=== PATIENT | female | born 1940 | race African-American/Black ===

== ENCOUNTER 2025-01-22 12:55 | Emergency (ER) | payer OTHER ==
--- OUTSIDE RECORDS SUMMARY | 2025-01-22 12:58 | XMS REPORT | Continuity of Care Document ---
Author Name Unknown Address [address] [facility]. [address] [place] [address] [facility] [address] [facility]. [address] [place] [address] Care Team Providers Care Novelty Chain Maker Name Role Phone Deborah Sky Primary Care Physician [phone] PHYLLIS GREGORY Attending Clinician Unavailable MARTY BLOCK Attending Clinician Unavailable Only, Ang Db Test Attending Clinician UnavailAdrian Hay Attending Clinician [phone] ADRIAN MCKENZIE Attending Clinician Unavailable Payers Payer Name Policy Type Policy Number Effective Date Expirati on Date Source WELLCARE/[facility] [id number] 2021 00:00:00 Allergies, Adverse Reactions, Alerts Allergy Name Allergy Type Status Severity Reaction(s) Onset Date Inactive Date Treating Clinician Comments Source NO KNOWN ALLERGIE S Drug Class Active [facility] Social History Social Habit Start Date Stop Date Quantity Comments Source Exposure to SARS-CoV-2 (event) Yes [facility] Sex Assigned At 1940 00:00:00 1940 00:00:00 [facility] Smoking Status Start Date Stop Date Source Tobacco smoking consumption unknown [facility] Procedures Procedure Date / Time Performed Performing Clinicia n Source COMPREHENSIVE HEARING TEST 2023-01-02 22:14:32 Miguel Gregory [facility] Encounters Start Date/Time End Date/Time Encounter Type Admission Type Attending Clinicians Care Facility Care Department Encounter ID Source 2023-03-05 15:22:29 [facility] [id number] [facility] 2023-02-26 09:20:37 [facility] [id number] [facility] 2023-01-02 15:36:46 [facility] [id number] [facility] 2022-11-07 12:27:47 [facility] [id number] [facility] 2022-10-31 08:45:50 [facility] [id number] [facility] 2022-10-24 13:12:45 [facility] [id number] [facility] 2022-08-22 14:48:10 [facility] [id number] [facility] 2022-08-11 10:35:17 [facility] [id number] [facility] 2023-03-12 14:00:00 2023-03-12 14:00:00 Procedure Visit PHYLLIS GREGORY [facility] [address] [id number] [facility] 2023-02-19 13:30:00 2023-02-19 13:30:00 Outpatient [facility] [id number] [facility] 2023-01-02 15:30:00 2023-01-02 16:16:02 Procedure Visit Phyllis Gregory [facility] [address] [id number] [facility] 2022-11-07 13:00:00 2022-11-07 13:00:00 Outpatient [facility]Y BLOCK [facility] [id number] [facility] 2021-11-23 14:00:00 2021-11-23 14:15:00 Laboratory Only Only, Ang Db Test [facility] [id number] [id number] [facility] 2021-11-23 14:00:00 2021-11-23 14:00:00 Outpatient ADRIAN [facility] [id number] [facility] 2017-08-03 14:25:00 2017-08-03 14:25:00 Outpatient [facility] [id number] [facility]
[2025-01-22 13:32] LABS: Absolute Basophils 0.1 K/uL (0-0.5); Absolute Eosinophils 0.4 K/uL (0-0.5); Absolute Lymphocytes (CBC) 1.8 K/uL (0.7-4.9); Absolute Monocytes 0.4 K/uL (0.1-1.3); Absolute Neutrophil 2.4 K/uL (1.8-8.0); Hematocrit 38.8 % (36.0-45.0); Hemoglobin 12.9 g/dL (12.0-15.0); MCH 30.1 pg (27.0-35.0); MCHC 33.3 g/dL (32.0-36.0); MCV 90.4 fL (80-100); MPV 8.7 fL (7.6-11.3); Monocytes % 7.9 % (3.3-12.3); Neutrophils % 47.1 % (41.7-73.7); Nucleated Red Blood Cells % 0.2 % (0-0); Platelets 279 thou/uL (152-406); RBC Red Blood Cell Count 4.29 M/uL (3.86-4.86)
[2025-01-22 13:39] LABS: PT Prothrombin Time 11.7 SECONDS (10-13.0); Protime INR 1.03
[2025-01-22 13:51] LABS: ALT/SGPT 15 U/L (13-56); AST/SGOT 12 U/L (15-37); Albumin 3.5 g/dL (3.4-5.0); Albumin/Globulin Ratio 0.9 (1.1-1.8); Alkaline Phosphatase 145 U/L (45-117); Anion Gap 8.3 mEq/L (5.0-15.0); BUN Blood Urea Nitrogen 26 mg/dL (7-18); Bicarbonate 24 mEq/L (21-32); Bilirubin Total 0.3 mg/dL (0.2-1.0); Globulin 3.8 g/dL (2.3-3.5); Glomerular Filtration Rate 24 ml/min (=/>90); Glucose Level 120 mg/dL (74-106); Magnesium 2.3 mg/dL (1.6-2.4); NT PRO-BNP 971 pg/mL (<450); Potassium 4.3 mEq/L (3.5-5.1); Protein, Total 7.3 g/dL (6.4-8.2); Sodium Level 141 mEq/L (136-145); Troponin High Sensitivity 12.3 pg/mL (<58.9)
[2025-01-22 14:11] LABS: Bilirubin Direct < 0.2 mg/dL (0-0.2); Bilirubin Indirect, Calculated 0.1 mg/dL (0.2-0.8)
--- NOTE | 2025-01-22 14:24 | RAD REPORT ---
Procedure: Chest Single View HISTORY: Hypertension COMPARISON: none FINDINGS: The lungs appear clear of acute infiltrate. No significant pleural effusion noted. The heart is mildly to moderately enlarged. IMPRESSION: No acute abnormality is displayed.
[2025-01-22 16:51] LABS: Specific Gravity 1.017 (1.005-1.030); Sqamous Epithelial <5 /HPF (None Seen); Urine Bacteria <20 /HPF (<20); Urine Bilirubin NEGATIVE (Negative); Urine Blood Negative (Negative); Urine Clarity Clear (Clear); Urine Color Light-Yellow (Yellow); Urine Crystals Unidentified Few /HPF (None Seen); Urine Culture Reflex Order NOT NEEDED; Urine Glucose NEGATIVE (Negative); Urine Ketones NEGATIVE (Negative); Urine Microscopic Reflex YN ORDER UMIC; Urine Mucus Slight /HPF (None Seen); Urine Nitrite NEGATIVE (Negative); Urine Protein NEGATIVE (Negative); Urine RBC <5 /HPF (None Seen); Urine Urobilinogen Normal (Normal); Urine WBC <5 /HPF (<5); Urine WBC Clump Rare /HPF (None Seen); Urine Yeast (Budding) Trace /HPF (None Seen)
--- NOTE | 2025-01-22 16:55 | EDPHYS ---
Physician Documentation [facility] Name: Claudine Meadows Age: 84 yrs Sex: Female : 1940 Arrival Date: 01/22/2025 Time: 12:55 Bed 15 Private MD: ED Physician Karlo Pete HPI: 01/22 13:20 This 84 yrs old Black Female presents to ER via Ambulatory with complaints of High cp Blood Pressure. 13:20 The patient has elevated blood pressure and discovered this at home, visiting nurse had cp concern about elevated blood pressure today and low heart rate. 13:20 Associated signs and symptoms: The patient has no apparent associated signs or cp symptoms, Pertinent negatives: chest pain, dizziness, headache, lightheadedness, visual changes, weakness. Severity of symptoms: in the emergency department the blood pressure is are actually worse, 203 mm Hg. Historical: - Allergies: 13:12 No Known Allergies; iw - Home Meds: 13:12 atenolol 100 mg Oral tablet daily [Active]; losartan 100 mg oral tablet daily [Active]; iw aspirin 325 mg Oral tablet daily [Active]; montelukast 10 mg oral tablet daily [Active]; amlodipine 5 mg tablet daily [Active]; methimazole 10 mg Oral tablet daily [Active]; dorzolamide (PF) 2 % ophthalmic (eye) drops twice a day [Active]; - PMHx: 13:16 Hypertensive disorder; iw 13:16 Hyperthyroidism; Hypercholesterolemia; iw - PSHx: 13:16 None; iw - Immunization history:: Adult Immunizations up to date. - Infectious Disease History:: Denies. - Social history:: Smoking status: Patient denies any tobacco usage or history of. ROS: 13:25 Constitutional: Negative for body aches, chills, fever, poor PO intake, cp 13:25 Eyes: Negative for injury, pain, redness, and discharge, cp 13:25 ENT: Negative for drainage from ear(s), ear pain, sore throat, difficulty swallowing, difficulty handling secretions, 13:25 Cardiovascular: Negative for chest pain, edema, palpitations, 13:25 Respiratory: Negative for cough, shortness of breath, wheezing, 13:25 Abdomen/GI: Negative for abdominal pain, vomiting, diarrhea, constipation, 13:25 : Negative for urinary symptoms, 13:25 Neuro: Negative for altered mental status, dizziness, headache, numbness, syncope, near syncope, weakness, 13:25 All other systems are negative, Exam: 13:30 Constitutional: The patient appears in no acute distress, alert, awake, cp non-diaphoretic, non-toxic, well developed, well nourished, anxious, 13:30 Head/Face: Normocephalic, atraumatic. cp 13:30 Eyes: Periorbital structures: appear normal, Conjunctiva: normal, no exudate, no injection, Sclera: no appreciated abnormality, Lids and lashes: appear normal, bilaterally, 13:30 ENT: External ear(s): are unremarkable, Nose: is normal, Mouth: Lips: moist, Oral mucosa: moist, Posterior pharynx: Airway: no evidence of obstruction, patent, 13:30 Chest/axilla: Inspection: normal, 13:30 Cardiovascular: Rate: bradycardic, Rhythm: regular, Edema: is not appreciated, JVD: is not appreciated, 13:30 Respiratory: the patient does not display signs of respiratory distress, Respirations: normal, no use of accessory muscles, no retractions, labored breathing, is not present, Breath sounds: are clear throughout, no decreased breath sounds, no stridor, no wheezing, 13:30 Abdomen/GI: Exam negative for discomfort, distension, guarding, Inspection: abdomen appears normal, 13:30 Back: pain, is absent, ROM is normal, 13:30 Neuro: Orientation: to person, place \T\ time. Mentation: is normal, Cerebellar function: is grossly normal, Motor: moves all fours, strength is normal, Sensation: is normal, Gait: is steady, at a normal pace, without difficulty, 13:38 ECG was reviewed by the Attending Physician. cp Vital Signs: 13:11 BP 203 / 72; Pulse 58; Resp 16; Pulse Ox 100% on R/A; Weight 75.3 kg; Height 5 ft. 2 iw in. ; Pain 0/10; 13:16 BP 170 / 70; Pulse 54; Resp 16; Pulse Ox 100% on R/A; iw 13:54 BP 151 / 61; Pulse 50; Resp 18; Pulse Ox 100% on R/A; ph 14:39 BP 135 / 58; Pulse 49; Resp 18; Pulse Ox 100% ; ph 13:11 Body Mass Index 30.36 (75.30 kg, 157.48 cm) iw 13:11 Pain Scale: Adult iw MDM: 13:08 Medical Screening Exam initiated cp 16:55 Data reviewed: vital signs, nurses notes, lab test result(s), EKG, radiologic studies, cp plain films, I have discussed the patient's presentation/case with the attending Emergency Department Physician; and as a result, I will discharge patient. 16:55 Differential diagnosis: hypertensive crisis, Malignant HTN, CVA, intracerebral cp hemorrhage, acute LA. I considered the following discharge prescriptions or medication management in the emergency department Antihypertensives: At this time antihypertensives are not recommended. We recommend home blood pressure checks and following up with primary care provider, discussed taking half dose of Atenolol medication and follow-up with pcp next 2-3 days. Care significantly affected by the following chronic conditions: Hypertension. Counseling: I had a detailed discussion with the patient and/or guardian regarding the historical points, exam findings, and any diagnostic results supporting the discharge/admit diagnosis, lab results, radiology results, the need for outpatient follow up, for definitive care, a family practitioner, an electrode turner and finisher, to return to the emergency department if symptoms worsen or persist or if there are any questions or concerns that arise at home. Response to treatment: the patient's symptoms have mildly improved after treatment, and as a result, I will discharge patient. 01/22 13:15 Order name: Basic Metabolic Panel; Complete Time: 14:58 cp 01/22 15:00 Interpretation: Normal except: CL 113; GLUC 120; BUN 26; CRE 2.02; GFR 24. 01/22 13:15 Order name: CBC with Diff; Complete Time: 13:40 cp 01/22 13:40 Interpretation: Reviewed. 01/22 13:15 Order name: LFT's; Complete Time: 14:58 cp 01/22 15:00 Interpretation: Normal except: AST 12; ALK 145; IBILI, CALC 0.1; GLOB 3.8; A/G 0.9. cp 01/22 13:15 Order name: Magnesium; Complete Time: 14:58 cp 01/22 13:15 Order name: NT PRO-BNP; Complete Time: 14:58 cp 01/22 13:15 Order name: PT-INR; Complete Time: 13:40 cp 01/22 13:15 Order name: Troponin HS; Complete Time: 14:58 cp 01/22 15:00 Interpretation: Reviewed. cp 01/22 13:15 Order name: Urinalysis w/ reflexes; Complete Time: 16:53 cp 01/22 16:53 Interpretation: Reviewed. cp 01/22 13:15 Order name: XRAY Chest (1 view); Complete Time: 14:58 cp 01/22 13:15 Order name: Cardiac monitoring; Complete Time: 13:37 cp 01/22 13:15 Order name: EKG - Nurse/Tech; Complete Time: 13:37 cp 01/22 13:15 Order name: IV Saline Lock; Complete Time: 13:58 cp 01/22 13:15 Order name: Labs collected and sent; Complete Time: 13:59 cp 01/22 13:15 Order name: O2 Per Protocol; Complete Time: 13:59 cp 01/22 13:15 Order name: O2 Sat Monitoring; Complete Time: 13:59 cp EC:38 Rate is 48 beats/min. Rhythm is regular. IL interval is normal. QRS interval is normal. cp QT interval is normal. T waves are Inverted in leads III, aVR. Interpreted by me. Reviewed by me. Administered Medications: No medications were administered Disposition Summary: 01/22/25 16:55 Discharge Ordered Problem: new cp Symptoms: have improved cp Condition: Stable cp Diagnosis - Hypertensive heart disease without heart failure cp - Abnormal results of kidney function studies cp - Bradycardia, unspecified cp Followup: cp - With: Private Physician - When: 2 - 3 days - Reason: Recheck today's complaints Discharge Instructions: - Discharge Summary Sheet cp - Bradycardia, Adult cp - Hypertension, Adult cp - How to Take Your Blood Pressure, [id number] cp - Aspirin and Your Heart cp - Form - Blood Pressure Record Sheet cp - Preventing Chronic Kidney Disease cp - How to Take Your Blood Pressure cp Forms: - Medication Reconciliation Form cp - Antibiotic Education cp - Prescription Opioid Use cp - Patient Portal Instructions cp - Leadership Thank You Letter cp Signatures: Dispatcher [employer] Mariia Barrera RN RN Jhonathan Hunter PA PA cp Corrections: (The following items were deleted from the chart) 13:15 13:15 BASIC METABOLIC PANEL+C.LAB.BRZ ordered. EDMS EDMS 13:15 13:15 CBC+H.LAB.BRZ ordered. EDMS EDMS 13:15 13:15 HEPATIC FUNCTION+C.LAB.BRZ ordered. EDMS EDMS 13:15 13:15 MAGNESIUM+C.LAB.BRZ ordered. EDMS EDMS 13:15 13:15 PROBNP+C.LAB.BRZ ordered. EDMS EDMS 13:15 13:15 PROTIME (+INR)+COAG.LAB.BRZ ordered. EDMS EDMS 13:15 13:15 Troponin High Sensitivity+C.LAB.BRZ ordered. EDMS EDMS 13:15 13:15 Urinalysis+U.LAB.BRZ ordered. EDMS EDMS 13:15 13:15 Chest Single View+RAD.RAD.BRZ ordered. EDMS EDMS 13:17 13:16 PMHx: Hypothyroidism; iw iw 13:43 13:40 This 84 yrs old Black Female presents to ER via Ambulatory with complaints of cp High Blood Pressure. cp
--- NOTE | 2025-01-22 16:55 | ER ---
Nurse's Notes [facility] Name: Claudine Meadows Age: 84 yrs Sex: Female : 1940 Arrival Date: 01/22/2025 Time: 12:55 Bed 15 Private MD: Diagnosis: Hypertensive heart disease without heart failure;Abnormal results of kidney function studies;Bradycardia, unspecified Presentation: 01/22 13:09 Chief complaint: Patient states: the visiting nurse thought my BP was too high and my iw PCP told me to come to the ER, BP was 156/60 and my HR was 53, denies headache or dizziness , she took her BP medicine this am. Coronavirus screen: At this time, the client does not indicate any symptoms associated with coronavirus-19. Ebola Screen: No symptoms or risks identified at this time. Initial Sepsis Screen: Does the patient meet any 2 criteria? No. Patient's initial sepsis screen is negative. Does the patient have a suspected source of infection? No. Patient's initial sepsis screen is negative. Risk Assessment: Do you want to hurt yourself or someone else? Patient reports no desire to harm self or others. Onset of symptoms was January 22, 2025. 13:09 Method Of Arrival: Ambulatory iw 13:09 Acuity: BRAYDEN 3 iw Historical: - Allergies: 13:12 No Known Allergies; iw - Home Meds: 13:12 atenolol 100 mg Oral tablet daily [Active]; losartan 100 mg oral tablet daily [Active]; iw aspirin 325 mg Oral tablet daily [Active]; montelukast 10 mg oral tablet daily [Active]; amlodipine 5 mg tablet daily [Active]; methimazole 10 mg Oral tablet daily [Active]; dorzolamide (PF) 2 % ophthalmic (eye) drops twice a day [Active]; - PMHx: 13:16 Hypertensive disorder; iw 13:16 Hyperthyroidism; Hypercholesterolemia; iw - PSHx: 13:16 None; iw - Immunization history:: Adult Immunizations up to date. - Infectious Disease History:: Denies. - Social history:: Smoking status: Patient denies any tobacco usage or history of. Screenin:[facility] ED Fall Risk Assessment (Adult) History of falling in the last 3 months, ph including since admission No falls in past 3 months (0 pts) Confusion or Disorientation No (0 pts) Intoxicated or Sedated No (0 pts) Impaired Gait No (0 pts) Mobility Assist Device Used No (0 pt) Altered Elimination No (0 pt) Score/Fall Risk Level 0 - 2 = Low Risk Oriented to surroundings, Maintained a safe environment, Hourly rounding (assess needs \T\ fall precautionary measures) done. Abuse screen: Denies threats or abuse. Denies injuries from another. Nutritional screening: No deficits noted. Tuberculosis screening: No symptoms or risk factors identified. Assessment: 13:54 General: Appears in no apparent distress. comfortable, Behavior is calm, cooperative, ph appropriate for age. Pain: Denies pain. Neuro: Level of Consciousness is awake, alert, obeys commands, Oriented to person, place, time, situation. Cardiovascular: Capillary refill < 3 seconds in bilateral fingers Patient's skin is warm and dry. Respiratory: Airway is patent Respiratory effort is even, unlabored, Respiratory pattern is regular, symmetrical. Derm: Skin is pink, warm \T\ dry. Vital Signs: 13:11 BP 203 / 72; Pulse 58; Resp 16; Pulse Ox 100% on R/A; Weight 75.3 kg; Height 5 ft. 2 iw in. ; Pain 0/10; 13:16 BP 170 / 70; Pulse 54; Resp 16; Pulse Ox 100% on R/A; iw 13:54 BP 151 / 61; Pulse 50; Resp 18; Pulse Ox 100% on R/A; ph 14:39 BP 135 / 58; Pulse 49; Resp 18; Pulse Ox 100% ; ph 13:11 Body Mass Index 30.36 (75.30 kg, 157.48 cm) iw 13:11 Pain Scale: Adult iw ED Course: 12:59 Patient arrived in ED. mr 13:07 Jhonathan Lara PA is PHCP. cp 13:07 Karlo Pete MD is Attending Physician. cp 13:10 Triage completed. iw 13:17 Arm band placed on. iw 13:19 Sarah Rivera, KALLIE is Primary Nurse. ph 13:37 EKG done, by ED staff, reviewed by Jhonathan RICCI. ty 13:54 Patient has correct armband on for positive identification. Bed in low position. Call ph light in reach. Side rails up X 1. Pulse ox on. NIBP on. Door closed. Noise minimized. Warm blanket given. 14:02 XRAY Chest (1 view) In Process Unspecified. EDMS 17:22 No provider procedures requiring assistance completed. IV discontinued, intact, ph bleeding controlled, No redness/swelling at site. Pressure dressing applied. Administered Medications: No medications were administered Medication: 13:54 VIS not applicable for this client. ph Outcome: 16:55 Discharge ordered by . cp 17:22 Discharged to home ambulatory, ph 17:22 Condition: good 17:22 Discharge instructions given to patient, Instructed on discharge instructions, follow up and referral plans. medication usage, Demonstrated understanding of instructions, follow-up care, medications, 17:22 Patient left the ED. ph Signatures: Dispatcher [employer] EDIA IngramMarlee valencia, Star Reg mr Mariia Bliss RN RN iw Sarah Rivera RN RN ph Jhonathan Lara, RADHAMES PA cp Rg Correia Corrections: (The following items were deleted from the chart) 13:12 13:09 Chief complaint: Patient states: the visiting nurse thought my BP was too high iw and my PCP told me to come to the ER, BP was 156/60 and my HR was 53, denies headache or dizziness iw 13: 13:11 BP 203 / 72; Pulse 58bpm; Resp 16bpm; Pulse Ox 100% RA; iw iw : 13:16 PMHx: Hypothyroidism; iw iw
[2025-01-22 17:39] VITALS: O2SAT 100
[2025-01-22 17:43] VITALS: BP 135/58
--- NOTE | 2025-01-26 12:13 | EKG ---
Test Date: 2025-01-22 Test Time: 13:32:35 Bone Char Puller: KIRSTY MEASUREMENT RESULTS: Intervals: Rate: 48 CO: 180 QRSD: 82 QT: 440 QTc: 393 [place]: P: 39 CO: 180 QRS: -6 T: 11 INTERPRETIVE STATEMENTS: Marked sinus bradycardia Septal infarct, age undetermined Abnormal ECG No previous ECG available for comparison Electronically Signed On 01-26-25 12:04:48 CDT by Roberto Lockhart
== END 2025-01-22 17:22 | disposition home or self-care (01) ==
LOC: ER 12:55
DX: I11.9 Hypertensive heart disease without heart failure (principal); R00.1 Bradycardia, unspecified; R94.4 Abnormal results of kidney function studies; I10 Essential (primary) hypertension; Z79.82 Long term (current) use of aspirin
CPT/HCPCS: 36415; 71045; 80048; 80076; 81001; 83735; 83880; 84484; 85025; 85610; 93005; 99284

== ENCOUNTER 2025-02-05 20:57 | Emergency (ER) | payer OTHER ==
--- OUTSIDE RECORDS SUMMARY | 2025-02-05 20:59 | XMS REPORT | Continuity of Care Document ---
Author Name Unknown Address [address] [facility] [address] [place] [address] [facility] Address [address] [facility]. [address] [place] [address] Care Team Providers Care Rail Bender Name Role Phone TAMMY VASQUES Primary Care Physician Unavailab PHYLLIS Deluca Attending Clinician Unavailable MARTY BLOCK Attending Clinician Unavailable Only, Ang Db Test Attending Clinician UnavailAdrian Hay Attending Clinician ADRIAN MCKENZIE Attending Clinician Unavailable Payers Payer Name Policy Type Policy Number Effective Date Expirati on Date Source [facility] [id number] 2021 00:00:00 Allergies, Adverse Reactions, Alerts Allergy Name Allergy Type Status Severity Reaction(s) Onset Date Inactive Date Treating Clinician Comments Source NO KNOWN ALLERGIE S Drug Class Active [facility] Social History Social Habit Start Date Stop Date Quantity Comments Source Exposure to SARS-CoV-2 (event) Yes [facility] Sex Assigned At 1940 00:00:00 1940 00:00:00 [facility] Smoking Status Start Date Stop Date Source Tobacco smoking consumption unknown [facility] Procedures Procedure Date / Time Performed Performing Clinicia n Source COMPREHENSIVE HEARING TEST 2023-01-02 22:14:32 Migeul Gregory [facility] Encounters Start Date/Time End Date/Time Encounter Type Admission Type Attending Clinicians Care Facility Care Department Encounter ID Source 2023-03-05 15:22:29 Outpatient [facility] [id number] [facility] 2023-02-26 09:20:37 Outpatient [facility] [id number] [facility] 2023-01-02 15:36:46 Outpatient [facility] [id number] [facility] 2022-11-07 12:27:47 Outpatient [facility] [id number] [facility] 2022-10-31 08:45:50 Outpatient [facility] [id number] [facility] 2022-10-24 13:12:45 Outpatient [facility] [id number] [facility] 2022-08-22 14:48:10 Outpatient [facility] [id number] [facility] 2022-08-11 10:35:17 Outpatient [facility] [id number] [facility] 2023-03-12 14:00:00 2023-03-12 14:00:00 Procedure Visit PHYLLIS GREGORY [facility] [address] [id number] [facility] 2023-02-19 13:30:00 2023-02-19 13:30:00 Outpatient PYHLLIS GREGORY [facility] [id number] [facility] 2023-01-02 15:30:00 2023-01-02 16:16:02 Procedure Visit Phyllis Gregory [facility] [address] [id number] [facility] 2022-11-07 13:00:00 2022-11-07 13:00:00 Outpatient MARTY BLOCK [facility] [id number] [facility] 2021-11-23 14:00:00 2021-11-23 14:15:00 Laboratory Only Only, Ang Db Test [facility] [id number] General acute hospital 2021-11-23 14:00:00 2021-11-23 14:00:00 Outpatient ADRIAN FERRARO [facility] [id number] General acute hospital 2017-08-03 14:25:00 2017-08-03 14:25:00 Outpatient [facility] [id number] [facility]
[2025-02-05] MEDS ORDERED: AMLODIPINE 5 MG TAB ONE (22:07)
--- NOTE | 2025-02-05 22:19 | RAD REPORT ---
EXAM: Chest Single View HISTORY: 84 years Female htn COMPARISON: 01/22/2025 FINDINGS: LUNGS/PLEURA: The lungs are clear. No pleural effusions or pneumothorax. No pulmonary edema. CARDIAC/MEDIASTINUM: Stable size and configuration. Calcified mediastinal and hilar lymph nodes. UPPER ABDOMEN: No significant abnormality. BONES: No acute abnormality. LINES/TUBES/OTHER: N/A IMPRESSION: No evidence of acute cardiopulmonary disease.
[2025-02-05 23:09] LABS: Albumin 3.6 g/dL (3.4-5.0); Albumin/Globulin Ratio 1.1 (1.1-1.8); Anion Gap 9.1 mEq/L (5.0-15.0); Bilirubin Direct 0.2 mg/dL (0-0.2); Bilirubin Indirect, Calculated 0.1 mg/dL (0.2-0.8); Bilirubin Total 0.3 mg/dL (0.2-1.0); Globulin 3.4 g/dL (2.3-3.5); Potassium 4.1 mEq/L (3.5-5.1); Troponin High Sensitivity 24.1 pg/mL (<58.9)
[2025-02-05 23:28] LABS: Thyroid Stimulating Hormone 6.73 uIU/mL (0.358-3.740)
[2025-02-05 23:35] LABS: Absolute Eosinophils 0.3 K/uL (0-0.5); Absolute Lymphocytes (CBC) 1.6 K/uL (0.7-4.9); Absolute Monocytes 0.4 K/uL (0.1-1.3); Absolute Neutrophil 2.4 K/uL (1.8-8.0); Eosinophils % 6.2 % (0-4.4); Hematocrit 36.5 % (36.0-45.0); Lymphocytes % 34.6 % (15.3-44.8); MCH 29.7 pg (27.0-35.0); MCV 90.1 fL (80-100); MPV 9.4 fL (7.6-11.3); Monocytes % 7.9 % (3.3-12.3); Neutrophils % 50.3 % (41.7-73.7); Platelets 242 thou/uL (152-406); RBC Red Blood Cell Count 4.05 M/uL (3.86-4.86); Red Cell Distribution Width 13.3 % (12.1-15.2)
--- NOTE | 2025-02-06 00:37 | ER ---
Nurse's Notes [facility] Name: Claudine Meadows Age: 84 yrs Sex: Female : 1940 Arrival Date: 02/05/2025 Time: 20:57 Bed 16 Private MD: Diagnosis: Essential (primary) hypertension Presentation: 02/05 21:16 Chief complaint: Patient states: I have been feeling off center all day. I felt like jb4 something washed over me and my hair started pricking and my sinuses cleared up so I check my blood pressure and it was 184/83, I waited 5 minutes and it was 202/83. Coronavirus screen: At this time, the client does not indicate any symptoms associated with coronavirus-19. Ebola Screen: No symptoms or risks identified at this time. Initial Sepsis Screen: Does the patient meet any 2 criteria? No. Patient's initial sepsis screen is negative. Does the patient have a suspected source of infection? No. Patient's initial sepsis screen is negative. Risk Assessment: Do you want to hurt yourself or someone else? Patient reports no desire to harm self or others. Onset of symptoms was February 05, 2025. Transition of care: patient was not received from another setting of care. 21:16 Method Of Arrival: Ambulatory jb4 21:16 Acuity: BRAYDEN 3 jb4 Triage Assessment: 21:18 General: Appears in no apparent distress. comfortable, Behavior is calm, cooperative, jb4 appropriate for age. Pain: Denies pain. Neuro: Level of Consciousness is awake, alert, obeys commands, Oriented to person, place, time, situation. Cardiovascular: Patient's skin is warm and dry. Respiratory: Airway is patent Respiratory effort is even, unlabored, Respiratory pattern is regular, symmetrical. Derm: Skin is intact, Skin is pink, warm \T\ dry. Musculoskeletal: Circulation, motion, and sensation intact. Range of motion: intact in all extremities. Historical: - Allergies: 21:18 No Known Allergies; jb4 - PMHx: 21:18 Hypercholesterolemia; Hypertensive disorder; hyperthyroidism; jb4 - PSHx: 21:18 Hysterectomy (hyperthyroidism); benign lump removed from left shoulder jb4 (hyperthyroidism); - Immunization history:: Adult Immunizations up to date. - Infectious Disease History:: Denies. - Social history:: Smoking status: Patient denies any tobacco usage or history of. - Family history:: not pertinent. Screenin:20 [facility] ED Fall Risk Assessment (Adult) History of falling in the last 3 months, rg5 including since admission No falls in past 3 months (0 pts) Confusion or Disorientation No (0 pts) Intoxicated or Sedated No (0 pts) Impaired Gait No (0 pts) Mobility Assist Device Used No (0 pt) Altered Elimination No (0 pt) Score/Fall Risk Level 0 - 2 = Low Risk Oriented to surroundings, Maintained a safe environment, Provided non-skid footwear. Abuse screen: Denies threats or abuse. Nutritional screening: No deficits noted. Tuberculosis screening: No symptoms or risk factors identified. Assessment: 21:20 General: Appears in no apparent distress. comfortable, Behavior is calm, cooperative, rg5 appropriate for age. 21:20 Pain: Denies pain. Neuro: Level of Consciousness is awake, alert, obeys commands, rg5 Oriented to person, place, time. Cardiovascular: Denies chest pain, Patient's skin is warm and dry. Rhythm is sinus rhythm. Respiratory: Airway is patent Trachea midline. GI: Abdomen is round non-distended, Abd is soft and non tender. : No signs and/or symptoms were reported regarding the genitourinary system. EENT: No deficits noted. Derm: Skin is intact, Skin is dry, Skin is normal, Skin temperature is warm. Musculoskeletal: Circulation, motion, and sensation intact. Range of motion: intact in all extremities. 22:19 Reassessment: No changes from previously documented assessment. Patient and/or family rg5 updated on plan of care and expected duration. Pain level reassessed. Patient is alert, oriented x 3, equal unlabored respirations, skin warm/dry/pink. 23:10 Reassessment: No changes from previously documented assessment. Patient and/or family rg5 updated on plan of care and expected duration. Pain level reassessed. Patient is alert, oriented x 3, equal unlabored respirations, skin warm/dry/pink. 02/06 00:24 Reassessment: Patient and/or family updated on plan of care and expected duration. Pain rg5 level reassessed. Patient is alert, oriented x 3, equal unlabored respirations, skin warm/dry/pink. Patient states symptoms have improved. Vital Signs: 02/05 21:16 BP 176 / 88; Pulse 68; Resp 16; Temp 98.5(O); Pulse Ox 100% on R/A; Weight 74.84 kg jb4 (R); Height 5 ft. 2 in. (R); Pain 0/10; 22:00 BP 154 / 65; Pulse 60; Resp 18; Pulse Ox 100% on R/A; Pain 0/10; rg5 23:00 BP 146 / 69; Pulse 56; Resp 17; Pulse Ox 99% on R/A; Pain 0/10; rg5 02/06 00:24 BP 126 / 60; Pulse 55; Resp 18; Pulse Ox 100% on R/A; rg5 00:30 BP 141 / 62; Pulse 58; Resp 18; Pulse Ox 100% on R/A; Pain 0/10; rg5 02/05 21:16 Body Mass Index 30.18 (74.84 kg, 157.48 cm) jb4 02/05 21:16 Pain Scale: Adult jb4 22:00 Pain Scale: Adult rg5 23:00 Pain Scale: Adult rg5 00:30 Pain Scale: Adult rg5 ED Course: 02/05 21:03 Patient arrived in ED. gm2 21:03 Kike Viramontes MD is Attending Physician. rt 21:18 Triage completed. jb4 21:18 Arm band placed on right wrist. jb4 21:20 Patient has correct armband on for positive identification. Bed in low position. Call rg5 light in reach. Side rails up X 1. Door closed. Noise minimized. Warm blanket given. 21:20 No provider procedures requiring assistance completed. Inserted saline lock: 20 gauge rg5 in left antecubital area, using aseptic technique. Blood collected. Flushed with 10 mL NS. 21:38 Samuel Monte, KALLIE is Primary Nurse. rg5 22:15 XRAY Chest (1 view) In Process Unspecified. EDMS 23:08 CT Head Brain wo Cont In Process Unspecified. EDMS 04 00:54 IV discontinued, bleeding controlled. rg5 00:55 Provided Education on: post er care. rg5 Administered Medications: 02/05 22:09 Drug: amLODIPine PO 5 mg PO once Route: PO; rg5 22:21 Follow up: Response: No adverse reaction; Blood pressure is lowered rg5 22:29 CANCELLED (Patient Refused): GI Cocktail without - (maaloxsuspension 30 ml, rt lidocaine mucous membrane liquid 2 % 15 ml) PO once 22:29 CANCELLED (Patient Refused): insulin regular human10 units IVP once rt 22:29 CANCELLED (Patient Refused): ns 0.9% 1000 ml IV at 1000 ml once; to be given as a bolus rt over 60 minutes Medication: 21:20 VIS not applicable for this client. rg5 Outcome: 02/06 00:37 Discharge ordered by . rt 00:54 Discharged to home ambulatory, rg5 00:54 Condition: stable 00:54 Discharge instructions given to patient, 00:55 Patient left the ED. rg5 Signatures: Dispatcher [employer] EDMS Adarsh Sterling, RN RN jb4 Kike Viramontes MD MD rt Yvette Vernon gm2 Samuel Monte, KALLIE RN rg5 Corrections: (The following items were deleted from the chart) 00:54 00:30 BP 141 / 62; Pulse 58bpm; rg5 rg5
--- NOTE | 2025-02-06 00:37 | EDPHYS ---
Physician Documentation [facility] Name: Claudine Meadows Age: 84 yrs Sex: Female : 1940 Arrival Date: 02/05/2025 Time: 20:57 Bed 16 Private MD: ED Physician Kike Viramontes HPI: 02/05 22:12 This 84 yrs old Black Female presents to ER via Ambulatory with complaints of High rt Blood Pressure, Dizziness. 22:12 Patient presents to the ED with reported hypertension, states that she felt dizzy and rt felt a pulsing sensation in her head. States that she is no longer dizzy, checked her blood pressure, was 180, then rechecked it was about 200. The patient denies chest pain, shortness of breath, denies other acute complaints at this time, symptoms are moderate in severity, no other aggravating or alleviating factors. Historical: - Allergies: 21:18 No Known Allergies; jb4 - PMHx: 21:18 Hypercholesterolemia; Hypertensive disorder; hyperthyroidism; jb4 - PSHx: 21:18 Hysterectomy (hyperthyroidism); benign lump removed from left shoulder jb4 (hyperthyroidism); - Immunization history:: Adult Immunizations up to date. - Infectious Disease History:: Denies. - Social history:: Smoking status: Patient denies any tobacco usage or history of. - Family history:: not pertinent. ROS: 22:12 Constitutional: Negative for fever, chills, and weight loss, Cardiovascular: Negative rt for chest pain, palpitations, and edema, Respiratory: Negative for shortness of breath, cough, wheezing, and pleuritic chest pain, Abdomen/GI: Negative for abdominal pain, nausea, vomiting, diarrhea, and constipation, MS/Extremity: Negative for injury and deformity, Skin: Negative for injury, rash, and discoloration, 22:12 Neuro: Positive for dizziness, Negative for altered mental status, Exam: 22:12 Constitutional: This is a well developed, well nourished patient who is awake, alert, rt and in no acute distress. Head/Face: Normocephalic, atraumatic. Chest/axilla: Normal chest wall appearance and motion. Nontender with no deformity. No lesions are appreciated. Cardiovascular: Regular rate and rhythm with a normal S1 and S2. No gallops, murmurs, or rubs. Normal PMI, no JVD. No pulse deficits. Respiratory: Lungs have equal breath sounds bilaterally, clear to auscultation and percussion. No rales, rhonchi or wheezes noted. No increased work of breathing, no retractions or nasal flaring. Abdomen/GI: Soft, non-tender, with normal bowel sounds. No distension or tympany. No guarding or rebound. No evidence of tenderness throughout. Skin: Warm, dry with normal turgor. Normal color with no rashes, no lesions, and no evidence of cellulitis. MS/ Extremity: Pulses equal, no cyanosis. Neurovascular intact. Full, normal range of motion. Neuro: Awake and alert, GCS 15, oriented to person, place, time, and situation. Cranial nerves II-XII grossly intact. Motor strength 5/5 in all extremities. Sensory grossly intact. Cerebellar exam normal. Normal gait. 22:12 ECG was reviewed by the Attending Physician. Vital Signs: 21:16 BP 176 / 88; Pulse 68; Resp 16; Temp 98.5(O); Pulse Ox 100% on R/A; Weight 74.84 kg jb4 (R); Height 5 ft. 2 in. (R); Pain 0/10; 22:00 BP 154 / 65; Pulse 60; Resp 18; Pulse Ox 100% on R/A; Pain 0/10; rg5 23:00 BP 146 / 69; Pulse 56; Resp 17; Pulse Ox 99% on R/A; Pain 0/10; [facility] 02/06 00:24 BP 126 / 60; Pulse 55; Resp 18; Pulse Ox 100% on R/A; rg5 00:30 BP 141 / 62; Pulse 58; Resp 18; Pulse Ox 100% on R/A; Pain 0/10; 5 02/05 21:16 Body Mass Index 30.18 (74.84 kg, 157.48 cm) [facility] 02/05 21:16 Pain Scale: Adult jb4 22:00 Pain Scale: Adult rg5 23:00 Pain Scale: Adult rg5 00:30 Pain Scale: Adult rg5 MDM: 02/05 21:46 Medical Screening Exam initiated rt 02/06 00:37 Differential diagnosis: Hypertension, dizziness, ACS, intracranial hemorrhage. Data rt reviewed: vital signs, nurses notes, lab test result(s), EKG, radiologic studies. Consideration of Admission/Observation Escalation of care including admission/observation considered. No signs of endorgan dysfunction, creatinine at baseline, CT scan of the head is unremarkable, patient symptoms have resolved with amlodipine, blood pressure significantly improved. No indications for admission at this time, patient is comfortable discharge, return precautions discussed.. I considered the following discharge prescriptions or medication management in the emergency department Medications were administered in the Emergency Department. See MAR. Independent interpretation of the following test(s) in the Emergency Department CT Scan: My interpretation is No intracranial hemorrhage seen on my interpretation of CT scan images. Care significantly affected by the following chronic conditions: Hypertension. Counseling: I had a detailed discussion with the patient and/or guardian regarding the historical points, exam findings, and any diagnostic results supporting the discharge/admit diagnosis, the presence of at least one elevated blood pressure reading (>120/80) during this emergency department visit, lab results, radiology results, the need for outpatient follow up, to return to the emergency department if symptoms worsen or persist or if there are any questions or concerns that arise at home. Response to treatment: the patient's symptoms have mildly improved after treatment. 02/05 21:55 Order name: Basic Metabolic Panel; Complete Time: 23:46 rt 02/05 21:55 Order name: CBC with Diff; Complete Time: 23:46 rt 02/05 21:55 Order name: LFT's; Complete Time: 23:46 rt 02/05 21:55 Order name: Troponin HS; Complete Time: 23:46 rt 02/05 21:55 Order name: TSH; Complete Time: 23:46 rt 02/05 23:31 Order name: T4 Free; Complete Time: 23:46 EDMS 02/05 21:55 Order name: XRAY Chest (1 view); Complete Time: 22:24 rt 02/05 21:55 Order name: CT Head Brain wo Cont rt 02/05 21:55 Order name: Cardiac monitoring; Complete Time: 22:09 rt 02/05 21:55 Order name: EKG - Nurse/Tech; Complete Time: 22:09 rt 02/05 21:55 Order name: IV Saline Lock; Complete Time: 23:01 rt 02/05 21:55 Order name: Labs collected and sent; Complete Time: 23:01 rt 02/05 21:55 Order name: O2 Per Protocol; Complete Time: 22: rt 02/05 21:55 Order name: O2 Sat Monitoring; Complete Time: 22:09 rt EC/03 22:12 Rate is 62 beats/min. Rhythm is regular, Normal Sinus Rhythm with No ectopy. QRS [place] rt is Normal. VA interval is normal. QRS interval is normal. QT interval is normal. No Q waves. No ST changes noted. Interpreted by me. Administered Medications: 22:09 Drug: amLODIPine PO 5 mg PO once Route: PO; rg5 22:21 Follow up: Response: No adverse reaction; Blood pressure is lowered rg5 22:29 CANCELLED (Patient Refused): GI Cocktail without - (maaloxsuspension 30 ml, rt lidocaine mucous membrane liquid 2 % 15 ml) PO once 22:29 CANCELLED (Patient Refused): insulin regular human10 units IVP once rt 22:29 CANCELLED (Patient Refused): ns 0.9% 1000 ml IV at 1000 ml once; to be given as a bolus rt over 60 minutes Disposition Summary: 02/06/25 00:37 Discharge Ordered Notes: Location: Home rt Problem: an ongoing problem rt Symptoms: have improved rt Condition: Stable rt Diagnosis - Essential (primary) hypertension rt Followup: rt - With: Private Physician - When: 2 - 3 days - Reason: Discharge Instructions: - Discharge Summary Sheet rt - Hypertension, Adult rt Forms: - Medication Reconciliation Form rt - Antibiotic Education rt - Prescription Opioid Use rt - Patient Portal Instructions rt - Leadership Thank You Letter rt Signatures: Dispatcher [employer] EDAdarsh Junior RN RN jb4 Kike Viramontes MD MD rt Samuel Monte RN RN rg5 Corrections: (The following items were deleted from the chart) 21:56 21:56 BASIC METABOLIC PANEL+C.LAB.BRZ ordered. EDMS EDMS 21:56 21:56 CBC+H.LAB.BRZ ordered. EDMS EDMS 21:56 21:56 HEPATIC FUNCTION+C.LAB.BRZ ordered. EDMS EDMS 21:56 21:56 Troponin High Sensitivity+C.LAB.BRZ ordered. EDMS EDMS 21:56 21:56 THYROID STIMULAT HORMONE+C.LAB.BRZ ordered. EDMS EDMS 21:56 21:56 Chest Single View+RAD.RAD.BRZ ordered. EDMS EDMS 21:56 21:56 Head Brain Wo Cont+CT.RAD.BRZ ordered. EDMS EDMS : GI Cocktail without - (Maalox PO 30 ml, Lidocaine Mucous Membrane 2 % 15 rt ml) PO once ordered. rt : Insulin Regular Human IVP 10 units IVP once ordered. rt rt : NS 0.9% IV 1000 ml IV at 1000 ml once; to be given as a bolus over 60 minutes rt ordered. rt : Accucheck ordered. rt rt
[2025-02-06 01:11] VITALS: TEMP 98.5
[2025-02-06 01:16] VITALS: O2SAT 100
[2025-02-06 01:18] VITALS: BP 141/62
--- NOTE | 2025-02-06 01:29 | RAD REPORT ---
PROCEDURE: CT Head Without Intravenous Contrast CLINICAL INDICATION: The patient is 84 years old and is Female; Headache, HTN. TECHNIQUE: Axial computed tomography images of the head/brain without intravenous contrast. Sagittal and coron al reformatted images were created and reviewed. This CT exam was performed using one or more of the following dose reduction techniques: automated exposure control, adjustment of the mA and/or kV according to patient size, and/or use of iterative reconstruction technique. COMPARISON: None. FINDINGS: BRAIN: Bilateral basal ganglia calcifications, nonspecific but most commonly suggestive of poorly c ontrolled hypertension. No extra-axial fluid collection. No intracranial hemorrhage. No transtentorial herniation. No focal hunt-white matter differentiation abnormality. MIDLINE SHIFT: No midline shift. VENTRICLES: Unremarkable No ventriculomegaly. BONES/JOINTS: No fracture of the calvarium or visualized facial bones. SOFT TISSUES: Multiple tiny perifalcine lipomas incidentally demonstrated. SINUSES: No masses, bony erosion or evidence of acute sinusitis. MASTOID AIR CELLS: Unremarkable as visualized. No mastoid effusion. IMPRESSION: 1. No acute intracranial abnormality. 2. Bilateral basal ganglia calcifications, nonspecific but most commonly suggestive of poorly contr olled hypertension. 3. Multiple tiny perifalcine lipomas incidentally demonstrated. Electronically signed by: Drake Cooper MD 02/06/2025 12:18 AM CDT RP Due to temporary technical issues with the PACS/[employer] reporting system, reports are being shreyas d by the in-house radiologist without review as a courtesy to ensure prompt reporting the interpreting radiologist is fully responsible for the content of the report. Transcribed Date/Time: 02/06/2025 1:28 AM
--- NOTE | 2025-02-06 13:19 | EKG ---
Test Date: 2025-02-05 Test Time: 22:02:05 Pool Nurse: CARYN MEASUREMENT RESULTS: Intervals: Rate: 62 UT: 164 QRSD: 94 QT: 430 QTc: 436 [place]: P: 81 UT: 164 QRS: 3 T: -14 INTERPRETIVE STATEMENTS: Normal sinus rhythm with sinus arrhythmia T wave abnormality, consider anterior ischemia Abnormal ECG Compared to ECG 01/22/2025 13:32:35 T-wave abnormality now present Possible ischemia now present Sinus bradycardia no longer present Myocardial infarct finding no longer present Electronically Signed On 02-06-25 13:18:37 CDT by Roberto Lockhart
== END 2025-02-06 00:55 | disposition home or self-care (01) ==
LOC: ER 20:57
DX: I10 Essential (primary) hypertension (principal)
CPT/HCPCS: 36415; 70450; 71045; 80048; 80076; 84439; 84443; 84484; 85025; 93005; 99284

== ENCOUNTER 2025-03-05 16:14 | Inpatient (IN) | payer OTHER ==
--- OUTSIDE RECORDS SUMMARY | 2025-03-05 16:22 | XMS REPORT | Continuity of Care Document ---
Author Name Unknown Address [address] [place] [address] [facility] Address [address] [place] [address] Care Team Providers Care Watch Train Assembler Name Role Phone Deborah Sky Primary Care Physician [phone] PHYLLIS GREGORY Attending Clinician Unavailable MARTY BLOCK Attending Clinician Unavailable Only, Ang Db Test Attending Clinician UnavailAdrian Hay Attending Clinician [phone] ADRIAN MCKENZIE Attending Clinician Unavailable Payers Payer Name Policy Type Policy Number Effective Date Expirati on Date Source [facility] [id number] 2021 00:00:00 Allergies, Adverse Reactions, Alerts Allergy Name Allergy Type Status Severity Reaction(s) Onset Date Inactive Date Treating Clinician Comments Source NO KNOWN ALLERGIE S Drug Class Active [facility] Social History Social Habit Start Date Stop Date Quantity Comments Source Exposure to SARS-CoV-2 (event) Yes [facility] Sex Assigned At 1940 00:00:00 1940 00:00:00 [facility] Smoking Status Start Date Stop Date Source Tobacco smoking consumption unknown [facility] Procedures Procedure Date / Time Performed Performing Clinicia n Source COMPREHENSIVE HEARING TEST 2023-01-02 22:14:32 Miguel Gregory [facility] Encounters Start Date/Time End Date/Time Encounter Type Admission Type Attending Clinicians Care Facility Care Department Encounter ID Source 2023-03-05 15:22:29 Outpatient [facility] [id number] [facility] 2023-02-26 09:20:37 Outpatient [facility] [id number] [facility] 2023-01-02 15:36:46 Outpatient [facility] [id number] [facility] 2022-11-07 12:27:47 Outpatient [facility] [id number] [facility] 2022-10-31 08:45:50 Outpatient [facility] [id number] [facility] 2022-10-24 13:12:45 Outpatient [facility] [id number] [facility] 2022-08-22 14:48:10 Outpatient [facility] [id number] [facility] 2022-08-11 10:35:17 Outpatient [facility] [id number] [facility] 2023-03-12 14:00:00 2023-03-12 14:00:00 Procedure Visit PHYLLIS GREGORY [facility] [address] [id number] [facility] 2023-02-19 13:30:00 2023-02-19 13:30:00 Outpatient PHYLLIS GREGORY [facility] [id number] [facility] 2023-01-02 15:30:00 2023-01-02 16:16:02 Procedure Visit Phyllis Gregory [facility] [address] [id number] [facility] 2022-11-07 13:00:00 2022-11-07 13:00:00 Outpatient MARTY BLOCK [facility] [id number] [facility] 2021-11-23 14:00:00 2021-11-23 14:15:00 Laboratory Only Only, Ang Db Test [facility] [id number] [facility] 2021-11-23 14:00:00 2021-11-23 14:00:00 Outpatient ADRIAN FERRARO [facility] [id number] [facility] 2017-08-03 14:25:00 2017-08-03 14:25:00 Outpatient [facility] [id number] [facility]
--- NOTE | 2025-03-05 18:47 | RAD REPORT ---
EXAMINATION: ONE VIEW CHEST XR CLINICAL INDICATION: CHEST PAIN TECHNIQUE: Frontal chest projection is submitted. Examination is limited by patient positioning and t echnique. COMPARISON: 02/05/2025 FINDINGS: The lungs are diffusely emphysematous but grossly clear. The heart is upper limit of normal in size. No displaced fractures identified. Aortic atherosclerosis. IMPRESSION: COPD without an acute process suspected.
[2025-03-05] MEDS ORDERED: NA CHLORIDE 0.9% 500 ML ONE (18:52)
[2025-03-05] MEDS ORDERED: MAGNESIUM SULFATE 1 gm IVPB 1 GM/100 ML BAG IV ONE (18:52)
[2025-03-05 19:20] LABS: Absolute Eosinophils 0.2 K/uL (0-0.5); Absolute Lymphocytes (CBC) 1.9 K/uL (0.7-4.9); Absolute Monocytes 0.3 K/uL (0.1-1.3); Absolute Neutrophil 2.7 K/uL (1.8-8.0); Basophils % 0.8 % (0-1.3); Eosinophils % 4.6 % (0-4.4); Hematocrit 40.1 % (36.0-45.0); Hemoglobin 13.3 g/dL (12.0-15.0); Lymphocytes % 36.5 % (15.3-44.8); MCH 29.7 pg (27.0-35.0); MCHC 33.2 g/dL (32.0-36.0); MCV 89.4 fL (80-100); MPV 8.1 fL (7.6-11.3); Monocytes % 5.1 % (3.3-12.3); Nucleated Red Blood Cells % 0.1 % (0-0); Platelets 338 thou/uL (152-406); RBC Red Blood Cell Count 4.48 M/uL (3.86-4.86); Red Cell Distribution Width 13.2 % (12.1-15.2)
[2025-03-05 19:26] LABS: PT Prothrombin Time 11.7 SECONDS (10-13.0); Protime INR 1.03
[2025-03-05 19:47] LABS: ALT/SGPT 17 U/L (13-56); AST/SGOT 14 U/L (15-37); Albumin 3.9 g/dL (3.4-5.0); Alkaline Phosphatase 140 U/L (45-117); BUN Blood Urea Nitrogen 33 mg/dL (7-18); Bicarbonate 22 mEq/L (21-32); Bilirubin Direct < 0.2 mg/dL (0-0.2); Bilirubin Indirect, Calculated 0.2 mg/dL (0.2-0.8); Bilirubin Total 0.4 mg/dL (0.2-1.0); Globulin 4.1 g/dL (2.3-3.5); Glomerular Filtration Rate 25 ml/min (=/>90); Glucose Level 103 mg/dL (74-106); Lipase 34 U/L (13-75); Magnesium 2.9 mg/dL (1.6-2.4); NT PRO-BNP 1858 pg/mL (<450); Sodium Level 137 mEq/L (136-145); Troponin High Sensitivity 38.6 pg/mL (<58.9)
[2025-03-05] MEDS ORDERED: ENOXAPARIN 80 MG/0.8 ML SQ ONE (20:08)
[2025-03-05] MEDS ORDERED: METOPROLOL XL 50 MG TAB PO ONE (20:08)
--- NOTE | 2025-03-05 20:10 | EDPHYS ---
Physician Documentation [facility] Name: Claudine Meadows Age: 84 yrs Sex: Female : 1940 Arrival Date: 03/05/2025 Time: 16:14 Bed 10 Private MD: JAMAL Physician Jhonathan Maurer HPI: 03/05 19:59 This 84 yrs old Black Female presents to ER via Ambulatory with complaints of HBP, donato Heart Racing. 19:59 The patient or guardian reports chest pain that is located primarily in the substernal donato area. Onset: 2 day(s) ago. The patient presents with a history of irregular heart beat, heart racing. Context: The symptoms occur with light activity. Onset: The symptoms/episode began/occurred 2 day(s) ago. Modifying factors: The symptoms are aggravated by nothing. The symptoms are alleviated by nothing. The pain does not radiate. Associated signs and symptoms: Pertinent positives: chest pain, lightheadedness. The chest pain is described as a pressure. Severity of pain: At its worst the pain was mild in the emergency department the pain has improved moderately. Severity of symptoms: At their worst the symptoms were mild moderate in the emergency department the symptoms have improved moderately. The patient has experienced similar episodes in the past, a few times. Historical: - Allergies: 16:57 No Known Allergies; jl7 - PMHx: 16:57 Hypercholesterolemia; Hypertensive disorder; hyperthyroidism; jl7 - PSHx: 16:57 benign lump removed from left shoulder (hy); hysterectomy (hy); jl7 - Immunization history:: Adult Immunizations unknown. - Infectious Disease History:: Denies. - Social history:: Smoking status: Patient denies any tobacco usage or history of. ROS: 20:02 Constitutional: Negative for fever, chills, and weight loss, Eyes: Negative for injury, donato pain, redness, and discharge, ENT: Negative for injury, pain, and discharge, Neck: Negative for injury, pain, and swelling, Respiratory: Negative for shortness of breath, cough, wheezing, and pleuritic chest pain, Abdomen/GI: Negative for abdominal pain, nausea, vomiting, diarrhea, and constipation, Back: Negative for injury and pain, : Negative for injury, bleeding, discharge, and swelling, MS/Extremity: Negative for injury and deformity, Skin: Negative for injury, rash, and discoloration, Neuro: Negative for headache, weakness, numbness, tingling, and seizure, Psych: Negative for depression, anxiety, suicide ideation, homicidal ideation, and hallucinations, Allergy/Immunology: Negative for hives, rash, and allergies, Endocrine: Negative for neck swelling, polydipsia, polyuria, polyphagia, and marked weight changes, Hematologic/Lymphatic: Negative for swollen nodes, abnormal bleeding, and unusual bruising, 20:02 Cardiovascular: Positive for chest pain, palpitations, Exam: 20:02 Constitutional: This is a well developed, well nourished patient who is awake, alert, donato and in no acute distress. Head/Face: Normocephalic, atraumatic. Eyes: Pupils equal round and reactive to light, extra-ocular motions intact. Lids and lashes normal. Conjunctiva and sclera are non-icteric and not injected. Cornea within normal limits. Periorbital areas with no swelling, redness, or edema. ENT: Nares patent. No nasal discharge, no septal abnormalities noted. Tympanic membranes are normal and external auditory canals are clear. Oropharynx with no redness, swelling, or masses, exudates, or evidence of obstruction, uvula midline. Mucous membranes moist. Neck: Trachea midline, no thyromegaly or masses palpated, and no cervical lymphadenopathy. Supple, full range of motion without nuchal rigidity, or vertebral point tenderness. No Meningismus. Chest/axilla: Normal chest wall appearance and motion. Nontender with no deformity. No lesions are appreciated. Cardiovascular: Regular rate and rhythm with a normal S1 and S2. No gallops, murmurs, or rubs. Normal PMI, no JVD. No pulse deficits. Respiratory: Lungs have equal breath sounds bilaterally, clear to auscultation and percussion. No rales, rhonchi or wheezes noted. No increased work of breathing, no retractions or nasal flaring. Abdomen/GI: Soft, non-tender, with normal bowel sounds. No distension or tympany. No guarding or rebound. No evidence of tenderness throughout. Back: No spinal tenderness. No costovertebral tenderness. Full range of motion. Skin: Warm, dry with normal turgor. Normal color with no rashes, no lesions, and no evidence of cellulitis. MS/ Extremity: Pulses equal, no cyanosis. Neurovascular intact. Full, normal range of motion., bilateral aka Neuro: Awake and alert, GCS 15, oriented to person, place, time, and situation. Cranial nerves II-XII grossly intact. Motor strength 5/5 in all extremities. Sensory grossly intact. Cerebellar exam normal. Normal gait. Psych: Awake, alert, with orientation to person, place and time. Behavior, mood, and affect are within normal limits. 20:02 ECG was reviewed by the Attending Physician. 20:02 Musculoskeletal/extremity: ROM: no acute changes, Circulation is intact in all extremities. Sensation intact. Compartment Syndrome exam of affected extremity: is normal. Weight bearing: able to fully bear weight, DVT Exam: No signs of deep vein thrombosis. no pain, no swelling, no tenderness, negative Homans' sign noted on exam, no appreciated bluish discoloration, no erythema, no increased warmth, Vital Signs: 16:47 BP 167 / 81; Pulse 81; Resp 17; Pulse Ox 100% ; Weight 71.67 kg; Height 5 ft. 2 in. ; jl7 Pain 0/10; 19:06 BP 154 / 83; Pulse 73; Resp 18; Pulse Ox 100% ; kb3 20:14 BP 120 / 63; Pulse 69; Resp 20; Pulse Ox 98% on R/A; Pain 0/10; jp4 22:12 BP 106 / 56; Pulse 49; Resp 18; Pulse Ox 97% on R/A; Pain 0/10; jp4 23:38 BP 123 / 58; Pulse 58; Resp 18; Pulse Ox 100% ; kl 16:47 Body Mass Index 28.90 (71.67 kg, 157.48 cm) jl7 16:47 Pain Scale: Adult jl7 20:14 Pain Scale: Adult jp4 22:12 Pain Scale: Adult jp4 Baljeet Coma Score: 20:02 Eye Response: spontaneous(4). Motor Response: obeys commands(6). Verbal Response: donato oriented(5). Total: 15. MDM: 16:47 Medical Screening Exam initiated donato 20:04 Differential diagnosis: abnormal EKG, acute myocardial infarction, acute pericarditis, donato anxiety, coronary artery disease chest wall pain, cholecystitis, Cholelithiasis costochondritis, arrythmia, dehydration, esophagitis, herpes zoster, hiatal hernia, pancreatitis, peptic ulcer disease, pericarditis, pneumonia, pulmonary embolus, stable angina, thoracic aortic disection, unstable angina. HEART Score: History: Moderately Suspicious (1), ECG: Non specific repolarization disturbance / LBTB / PM (1), Age: > or = 65 years (2), Risk Factors: > or = 3 Risk factors for atherosclerotic disease (2), [Hypercholesterolemia] [Hypertension] [+ Family HX] Troponin: < or = 1 x Normal Limit (0), Total Score = 6. The patient was given aspirin in the Emergency Department. RIKKI Risk Score: 1 - patient's age is greater or equal to 65 years, 1 - Three or more CAD risk factors, 1- Known CAD, 1 - ASA use in past 7 days, 1 - Recent [<24hrs] Severe Angina, TOTAL SCORE = 5. Data reviewed: vital signs, nurses notes, lab test result(s), EKG, radiologic studies, plain films. Consideration of Admission/Observation Patient was admitted/placed on observation. Escalation of care including admission/observation considered. I considered the following discharge prescriptions or medication management in the emergency department Medications were administered in the Emergency Department. See MAR. Independent interpretation of the following test(s) in the Emergency Department EKG: See my EKG interpretation above. Test considered but Not performed: Ultrasound NO 2 D ECHO. Historians other than the Patient: PT IS WELL INFORMED. Care significantly affected by the following chronic conditions: Hypertension, HIGH CHLESTEROL. Counseling: I had a detailed discussion with the patient and/or guardian regarding the historical points, exam findings, and any diagnostic results supporting the discharge/admit diagnosis, the presence of at least one elevated blood pressure reading (>120/80) during this emergency department visit, lab results, radiology results, the need for further work-up and treatment in the hospital. 03/05 16:48 Order name: Basic Metabolic Panel; Complete Time: 21:21 [facility] 03/05 16:48 Order name: CBC with Diff; Complete Time: 19:50 [facility] 03/05 16:48 Order name: LFT's; Complete Time: 21:21 [facility] 03/05 16:48 Order name: Magnesium; Complete Time: 21:21 [facility] 03/05 16:48 Order name: NT PRO-BNP; Complete Time: 21:21 [facility] 03/05 16:48 Order name: PT-INR; Complete Time: 19:50 [facility] 03/05 16:48 Order name: Troponin HS; Complete Time: 21:21 [facility] 03/05 16:48 Order name: Lipase; Complete Time: 21:21 [facility] 03/05 16:48 Order name: TSH; Complete Time: 21:21 [facility] 03/05 19:50 Order name: T4 Free; Complete Time: 21:21 EDMS 03/05 20:22 Order name: CBC with Automated Diff EDMS 03/05 20:22 Order name: CBC with Automated Diff EDMS 03/05 20:22 Order name: Comprehensive Metabolic Panel EDMS 03/05 20:22 Order name: Comprehensive Metabolic Panel MS 03/05 16:48 Order name: XRAY Chest (1 view); Complete Time: 19:06 [facility] 03/05 16:48 Order name: Cardiac monitoring; Complete Time: 19:16 [facility] 03/05 16:48 Order name: EKG - Nurse/Tech; Complete Time: 19:38 [facility] 03/05 16:48 Order name: IV Saline Lock; Complete Time: 19:16 [facility] 03/05 16:48 Order name: Labs collected and sent; Complete Time: 19:16 [facility] 03/05 16:48 Order name: O2 Sat Monitoring; Complete Time: 19:17 [facility] EC:02 Rate is 77 beats/min. Rhythm is regular. QRS [place] is Normal. NE interval is normal. QRS donato interval is normal. QT interval is normal. No Q waves. T waves are Normal. No ST changes noted. Clinical impression: NSR w/ Non-specific ST/T Changes and No evidence of ischemia. Interpreted by me. Reviewed by me. Administered Medications: 19:16 Drug: NS 0.9% IV 500 ml 500 ml IV at 1 bolus once; to be given as a bolus over 30 jp4 minutes Volume: 500 ml; Route: IV; Rate: 1 bolus; Site: right antecubital; 21:02 Follow up: Response: No adverse reaction; Rate change bolus jp4 19:16 Drug: Magnesium Sulfate IVPB 1 grams IVPB once over 1 hrs Route: IVPB; Infused Over: 1 jp4 hrs; Site: right antecubital; 21:01 Follow up: Rate change 50 ml/hr; IV Status: Completed infusion jp4 20:16 Drug: ToPROL XL PO 25 mg PO once Route: PO; jp4 21:01 Follow up: Response: No adverse reaction jp4 20:16 Drug: Enoxaparin Sub-Q 1 mg/kg Sub-Q once Route: Sub-Q; Site: left lower abdomen; jp4 21:00 Follow up: Response: No adverse reaction; Other jp4 Disposition Summary: 03/05/25 20:09 Hospitalization Ordered Notes: Hospitalization Status: Observation donato Provider: Melecio Pruett cha Location: Telemetry/MedSurg (observation) donato Condition: Fair donato Problem: new donato Symptoms: have improved donato Bed/Room Type: Standard donato Room Assignment: 425(03/05/25 23:19) km Diagnosis - Essential (primary) hypertension donato - Palpitations donato - Unspecified kidney failure - CHRONIC donato Forms: - Medication Reconciliation Form donato - SBAR form donato - Leadership Thank You Letter donato Signatures: Dispatcher [employer] EDMS Jhonathan Maurer MD MD cha Leal, Jahala RN RN jl7 Bj Cortez RN RN jp4 Cinda Gunter [facility] Corrections: (The following items were deleted from the chart) 16:49 16:49 BASIC METABOLIC PANEL+C.LAB.BRZ ordered. EDMS EDMS 16:49 16:49 CBC+H.LAB.BRZ ordered. EDMS EDMS 16:49 16:49 HEPATIC FUNCTION+C.LAB.BRZ ordered. EDMS EDMS 16:49 16:49 MAGNESIUM+C.LAB.BRZ ordered. EDMS EDMS 16:49 16:49 PROBNP+C.LAB.BRZ ordered. EDMS EDMS 16:49 16:49 PROTIME (+INR)+COAG.LAB.BRZ ordered. EDMS EDMS 16:49 16:49 Troponin High Sensitivity+C.LAB.BRZ ordered. EDMS EDMS 16:49 16:49 LIPASE+C.LAB.BRZ ordered. EDMS EDMS 16:49 16:49 THYROID STIMULAT HORMONE+C.LAB.BRZ ordered. EDMS EDMS 16:49 16:49 Chest Single View+RAD.RAD.BRZ ordered. EDMS EDMS 23:19 20:09 donato kmf
--- NOTE | 2025-03-05 20:10 | ER ---
Nurse's Notes [facility] Name: Claudine Meadows Age: 84 yrs Sex: Female : 1940 Arrival Date: 03/05/2025 Time: 16:14 Bed 10 Private MD: Diagnosis: Essential (primary) hypertension;Palpitations;Unspecified kidney failure-CHRONIC Presentation: 03/05 16:47 Chief complaint: Patient states: Had some palpitations at 1500 today and lasted about jl7 20 minutes, resolved at this time. Coronavirus screen: At this time, the client does not indicate any symptoms associated with coronavirus-19. Ebola Screen: No symptoms or risks identified at this time. Initial Sepsis Screen: Does the patient meet any 2 criteria? No. Patient's initial sepsis screen is negative. Does the patient have a suspected source of infection? No. Patient's initial sepsis screen is negative. Risk Assessment: Do you want to hurt yourself or someone else? Patient reports no desire to harm self or others. Onset of symptoms was March 05, 2025 at 15:00. 16:47 Method Of Arrival: Ambulatory 7 16:47 Acuity: BRAYDEN 3 jl7 Triage Assessment: 16:57 General: Appears in no apparent distress. uncomfortable, Behavior is calm, cooperative, jl7 appropriate for age. Pain: Denies pain. Neuro: Level of Consciousness is awake, alert, obeys commands, Oriented to person, place, time, situation. Cardiovascular: Patient's skin is warm and dry. Respiratory: Airway is patent Respiratory effort is even, unlabored, Respiratory pattern is regular, symmetrical. Derm: Skin is pink, warm \\T\\ dry. Historical: - Allergies: 16:57 No Known Allergies; jl7 - PMHx: 16:57 Hypercholesterolemia; Hypertensive disorder; hyperthyroidism; jl7 - PSHx: 16:57 benign lump removed from left shoulder (hy); hysterectomy (hy); jl7 - Immunization history:: Adult Immunizations unknown. - Infectious Disease History:: Denies. - Social history:: Smoking status: Patient denies any tobacco usage or history of. Screenin:06 [facility] ED Fall Risk Assessment (Adult) History of falling in the last 3 months, kb3 including since admission No falls in past 3 months (0 pts) Confusion or Disorientation No (0 pts) Intoxicated or Sedated No (0 pts) Impaired Gait No (0 pts) Mobility Assist Device Used No (0 pt) Altered Elimination No (0 pt) Score/Fall Risk Level 0 - 2 = Low Risk Oriented to surroundings. Abuse screen: Denies threats or abuse. Denies injuries from another. Nutritional screening: No deficits noted. Tuberculosis screening: No symptoms or risk factors identified. Assessment: 19:06 Reassessment: Patient appears in no apparent distress at this time. General: Appears in kb3 no apparent distress. comfortable, Behavior is calm, cooperative. Pain: Denies pain. Cardiovascular: Rhythm is regular. Respiratory: No deficits noted. 19:06 Respiratory: Denies shortness of breath. kb3 19:17 General: Appears in no apparent distress. comfortable, well groomed, well developed, jp4 Behavior is calm, cooperative, very pleasant. Denies fever, feeling ill, fatigue, chills. Pain: Denies pain. Neuro: Level of Consciousness is awake, alert, obeys commands, Oriented to person, place, time, situation, Gait is steady, Speech is normal, Facial symmetry appears normal. Cardiovascular: Reports earlier in the morning patient states that she felt her BP was significantly higher than normal, at 185 SBP, and that her heart was "racing". Respiratory: No deficits noted. Airway is patent Trachea midline Respiratory effort is even, unlabored, Respiratory pattern is regular, symmetrical. Musculoskeletal: No deficits noted. Vital Signs: 16:47 BP 167 / 81; Pulse 81; Resp 17; Pulse Ox 100% ; Weight 71.67 kg; Height 5 ft. 2 in. ; jl7 Pain 0/10; 19:06 BP 154 / 83; Pulse 73; Resp 18; Pulse Ox 100% ; kb3 20:14 BP 120 / 63; Pulse 69; Resp 20; Pulse Ox 98% on R/A; Pain 0/10; jp4 22:12 BP 106 / 56; Pulse 49; Resp 18; Pulse Ox 97% on R/A; Pain 0/10; jp4 23:38 BP 123 / 58; Pulse 58; Resp 18; Pulse Ox 100% ; kl 16:47 Body Mass Index 28.90 (71.67 kg, 157.48 cm) jl7 16:47 Pain Scale: Adult jl7 20:14 Pain Scale: Adult jp4 22:12 Pain Scale: Adult jp4 Vitals: 19:17 Cardiac Rhythm Assessment Regular. jp4 Baljeet Coma Score: 20:02 Eye Response: spontaneous(4). Motor Response: obeys commands(6). Verbal Response: donato oriented(5). Total: 15. ED Course: 16:34 Patient arrived in ED. cj3 16:47 Jhonathan Maurer MD is Attending Physician. donato 16:50 EKG completed in triage. Results shown to MD. jl7 16:57 Triage completed. jl7 16:57 Arm band placed on right wrist. jl7 18:41 XRAY Chest (1 view) In Process Unspecified. EDMS 19:00 No apparent distress. Awaiting lab results. jp4 19:00 Inserted saline lock: 20 gauge in right antecubital area, using aseptic technique. jp4 19:06 Patient has correct armband on for positive identification. Placed in gown. Bed in low kb3 position. Side rails up X 1. Provided Education on: Labs, medications, POC. 19:06 No provider procedures requiring assistance completed. kb3 19:16 TSH Sent. jp4 19:16 Lipase Sent. jp4 19:17 Client placed on continuous cardiac and pulse oximetry monitoring. NIBP monitoring jp4 applied. die inspector on. Pulse ox on. NIBP on. Door closed. Noise minimized. Lights dimmed. Warm blanket given. Pillow given. 19:17 Basic Metabolic Panel Sent. jp4 19:17 LFT's Sent. jp4 19:17 CBC with Diff Sent. jp4 19:17 Magnesium Sent. jp4 19:17 NT PRO-BNP Sent. jp4 19:17 PT-INR Sent. jp4 19:17 Troponin HS Sent. jp4 20:08 Melecio Pruett MD is Hospitalizing Provider. donato 20:15 Patient states that she has no needs at this time. Very comfortable. Awaiting further jp4 results and update from physician.. 20:22 Bj Cortez, RN is Primary Nurse. jp4 22:11 pt sleeping at this time. jp4 03/06 00:31 Patient admitted, IV remains in place. kl Administered Medications: 03/05 19:16 Drug: NS 0.9% IV 500 ml 500 ml IV at 1 bolus once; to be given as a bolus over 30 jp4 minutes Volume: 500 ml; Route: IV; Rate: 1 bolus; Site: right antecubital; 21:02 Follow up: Response: No adverse reaction; Rate change bolus jp4 19:16 Drug: Magnesium Sulfate IVPB 1 grams IVPB once over 1 hrs Route: IVPB; Infused Over: 1 jp4 hrs; Site: right antecubital; 21:01 Follow up: Rate change 50 ml/hr; IV Status: Completed infusion jp4 20:16 Drug: ToPROL XL PO 25 mg PO once Route: PO; jp4 21:01 Follow up: Response: No adverse reaction jp4 20:16 Drug: Enoxaparin Sub-Q 1 mg/kg Sub-Q once Route: Sub-Q; Site: left lower abdomen; jp4 21:00 Follow up: Response: No adverse reaction; Other jp4 Medication: 19:06 VIS not applicable for this client. kb3 Outcome: 20:09 Decision to Hospitalize by Provider. donato 03/06 00:30 Admitted to Tele accompanied by nurse, room 425, Condition: stable Instructed on the need for admit, 00:31 Patient left the ED. Signatures: Dispatcher [employer] Aliyah Redmond, RN Jhonathan Toribio MD MD cha Leal, Jahala RN RN jl7 Pili Voss, KALLIE RN kb3 Bj Cortez, KALLIE RN jp4 Evelyn Ariza 3
[2025-03-05] MEDS ORDERED: ONDANSETRON 4 MG/2 ML VIAL IV PRN (20:18)
[2025-03-05] MEDS ORDERED: ACETAMINOPHEN 325 MG TABLET PO PRN (20:18)
--- NOTE | 2025-03-05 20:18 | P.HP ---
Certification for Inpatient Patient admitted to: Inpatient With expected LOS: >2 Midnights Practitioner: I am a practitioner with admitting privileges, knowledge of patient current condition, hospital course, and medical plan of care. Services: Services provided to patient in accordance with Admission requirements found in Title 42 Section 412.3 of the Code of Federal Regulations Patient History Date of Service: 03/06/25 Reason for admission: CP History of Present Illness: 84 yrs old Female with past medical history of hypertension, hyperlipidemia, hypothyroidism, who was brought to ER with palpitation and chest discomfort. Patient started having chest discomfort substernal area with no radiation started 2 days ago associated with palpitation has a feeling of racing of the heart. Denies any fever or chills. No nausea vomiting or diarrhea. Has some lightheadedness. Patient was assessed in the ER was admitted for further management of chest pain rule out ACS and consult rule out any arrhythmias Allergies No Known Allergies Allergy (Unverified 03/06/25 01:03) Home medications list reviewed: Yes Home Medications: Montelukast [Singulair] 10 mg PO BEDTIME 03/06/25 - Past Medical/Surgical History Past Medical History: Reviewed- Non-Contributory Past Surgical History: Reviewed- Non-Contributory - Social History Smoking Status: Never smoker Review of Systems 10-point ROS is otherwise unremarkable Physical Examination - Vital Signs Temperature: 97.8 F Blood Pressure: 167/81 Pulse: 82 Respirations: 18 Pulse Ox (%): 94 - Physical Exam General: Alert, In no apparent distress, Oriented x3 HEENT: Atraumatic, Normocephalic Neck: Supple, JVD not distended Respiratory: Clear to auscultation bilaterally, Normal air movement Cardiovascular: Regular rate/rhythm, Normal S1 S2 Capillary refill: <2 Seconds Gastrointestinal: Normal bowel sounds, Soft and benign, W/out hepatosplenomegaly Musculoskeletal: No clubbing, No swelling Integumentary: No rashes, No breakdown Neurological: Normal speech, Normal strength at 5/5 x4 extr Lymphatics: No axilla or inguinal lymphadenopathy - Studies Laboratory Data (last 24 hrs) 03/05/25 03/05/25 03/05/25 19:05 19:05 19:05 WBC 5.10 Hgb 13.3 Hct 40.1 Plt Count 338 PT 11.7 INR 1.03 Sodium 137 Potassium 4.0 BUN 33 H Creatinine 1.94 H Glucose 103 Magnesium 2.9 H Total Bilirubin 0.4 AST 14 L ALT 17 Alkaline Phosphatase 140 H Lipase 34 Assessment and Plan - Plan Chest pain to rule out ACS Cardiac enzymes trended Started on aspirin and statin Will get cardiology evaluation Will get an echocardiogram Hypertension Antihypertensives titrated Continue home medications and titrate as needed Hyperlipidemia Continue statin CKD stage II Monitor renal parameters Electrolytes monitor and replace accordingly Hypothyroidism Will get a TSH level and T4 Adjust thyroid medications as per the level GI/DVT prophylaxis Advanced directive full code Discharge Plan: Home Plan to discharge in: 48 Hours - Advance Directives Does patient have a Living Will: No Does patient have a Durable POA for Healthcare: No - Code Status/Comfort Care Code Status: Full Code Time Spent Managing Pts Care (In Minutes): 48
[2025-03-06] MEDS ORDERED: MORPHINE 2 MG/ML SYR IV PRN (00:03)
[2025-03-06] MEDS ORDERED: HYDROCODONE/APAP 5/325 MG TAB PO PRN (00:03)
[2025-03-06 04:17] VITALS: BMI 28.9
[2025-03-06 05:26] LABS: Absolute Eosinophils 0.3 K/uL (0-0.5); Absolute Monocytes 0.5 K/uL (0.1-1.3); Absolute Neutrophil 2.4 K/uL (1.8-8.0); Basophils % 0.8 % (0-1.3); Eosinophils % 5.1 % (0-4.4); Hematocrit 32.9 % (36.0-45.0); Hemoglobin 10.9 g/dL (12.0-15.0); Lymphocytes % 38.8 % (15.3-44.8); MCH 30.1 pg (27.0-35.0); MCV 91.1 fL (80-100); MPV 8.6 fL (7.6-11.3); Monocytes % 9.2 % (3.3-12.3); Neutrophils % 46.1 % (41.7-73.7); Nucleated Red Blood Cells % 0.2 % (0-0); Platelets 255 thou/uL (152-406); RBC Red Blood Cell Count 3.62 M/uL (3.86-4.86); Red Cell Distribution Width 13.1 % (12.1-15.2)
[2025-03-06 05:54] LABS: AST/SGOT 13 U/L (15-37); Albumin/Globulin Ratio 0.9 (1.1-1.8); Alkaline Phosphatase 107 U/L (45-117); Anion Gap 8.2 mEq/L (5.0-15.0); BUN Blood Urea Nitrogen 30 mg/dL (7-18); Bicarbonate 24 mEq/L (21-32); Bilirubin Total 0.4 mg/dL (0.2-1.0); Globulin 3.2 g/dL (2.3-3.5); Glomerular Filtration Rate 29 ml/min (=/>90); Glucose Level 82 mg/dL (74-106); Potassium 4.2 mEq/L (3.5-5.1); Protein, Total 6.2 g/dL (6.4-8.2); Sodium Level 138 mEq/L (136-145); Troponin High Sensitivity 24.9 pg/mL (<58.9)
[2025-03-06 06:02] LABS: ALT/SGPT < 14 U/L (13-56)
[2025-03-06] MEDS: ENOXAPARIN 30 MG/0.3 ML SQ SCH (09:16)
[2025-03-06] MEDS: ASPIRIN EC 81 MG TAB PO SCH (09:16)
[2025-03-06 11:44] VITALS: O2SAT 100
--- NOTE | 2025-03-06 12:42 | ECHO ---
HEIGHT: 5 ft 2 in WEIGHT: 158 lb 0 oz DATE OF STUDY: 03/06/[address]: Familia Pruett DO 2-DIMENSIONAL: YES M.MODE: YES DOPPLER: YES COLOR FLOW: YES TDS: PORTABLE: YES DEFINITY: BUBBLE STUDY: DIAGNOSIS: CHEST PAIN CARDIAC HISTORY: CATHERIZATION: NO SURGERY: NO PROSTHETIC VALVE: NO PACEMAKER: NO MEASUREMENTS (cm) DIASTOLIC (NORMALS) SYSTOLIC (NORMALS) IVSd 1.0 (0.6-1.2) LA Diam 2.8 (1.9-4.0) LVEF 60-65% LVIDd 3.6 (3.5-5.7) LVIDs 2.2 (2.0-3.5) %FS 37% LVPWd 1.1 (0.6-1.2) Ao Diam 2.5 (2.0-3.7) 2 DIMENSIONAL ASSESSMENT: RIGHT ATRIUM: NORMAL LEFT ATRIUM: MODERATELY DILATED RIGHT VENTRICLE: NORMAL LEFT VENTRICLE: NORMAL TRICUSPID VALVE: MILD TRICUSPID REGURGITATION MITRAL VALVE: NORMAL PULMONIC VALVE: NORMAL AORTIC VALVE: NORMAL PERICARDIAL EFFUSION: NONE AORTIC ROOT: NORMAL LEFT VENTRICULAR WALL MOTION: NORMAL DOPPLER/COLOR FLOW: GRADE II DIASTOLIC DYSFUNCTION COMMENTS: 1. NORMAL LEFT VENTRICULAR SYSTOLIC FUNCTION, EJECTION FRACTION 60-65%, NORMAL WALL MOTION 2. GRADE II DIASTOLIC DYSFUNCTION 3. MILD ELEVATED FILLING PRESSURE (RIGHT ATRIAL PRESSURE 5-10 mmHg) TECHNOLOGIST: SHAYLA ARAMBULA
--- NOTE | 2025-03-06 15:41 | P.CNS ---
Date of Consult: 03/06/25 Chief Complaint: CP History of Present Illness: Patient with PMH of HTN, thyroid disease, presented with palpitations, she felt her HR was going fast yesterday, denies chest pain, no SOB, no SMITH, no syncope. Allergies No Known Allergies Allergy (Unverified 03/06/25 01:03) Home medications list reviewed: Yes Home Medications: Amlodipine Besylate 10 mg PO DAILY 03/06/25 Carvedilol [Coreg] 3.125 mg PO DAILY 03/06/25 Dorzolamide HCl/Timolol Maleat [Dorzolamide-Timolol Eye Drops] 1 drop OPTH BID 03/06/25 Latanoprost Ophth [Xalatan 0.005%*] 1 drop OPTH BEDTIME 03/06/25 Losartan Potassium 100 mg PO DAILY 03/06/25 Montelukast [Singulair] 10 mg PO BEDTIME 03/06/25 Triamterene/Hydrochlorothiazid [Triamterene-Hctz 37.5-25 mg Tb] 1 each PO DAILY 03/06/25 - Past Medical/Surgical History Diabetic: No -: Hypertensive disorder -: hyperthyroidism -: hypercholesterolemia -: hysterectomy -: left shoulder benign lump removal - Family History Mother Medical History: Heart disease, Hypertension - Social History Alcohol use: No CD- Drugs: No Caffeine use: Yes Place of Residence: Home Review of Systems 10-point ROS is otherwise unremarkable Physical Examination Temp Pulse Resp BP Pulse Ox 97.7 F 50 15 123/60 100 03/06/25 12:00 03/06/25 12:00 03/06/25 12:00 03/06/25 12:00 03/06/25 12:00 General: Alert, In no apparent distress HEENT: Atraumatic, PERRLA, Mucous membr. moist/pink, EOMI, Sclerae nonicteric Neck: Supple, 2+ carotid pulse no bruit, No LAD, Without JVD or thyroid abnormality Respiratory: Clear to auscultation bilaterally, Normal air movement Cardiovascular: Regular rate/rhythm, Normal S1 S2 Gastrointestinal: Normal bowel sounds, No tenderness Musculoskeletal: No tenderness Integumentary: No rashes Neurological: Normal gait, Normal speech, Normal tone, Normal affect Lymphatics: No axilla or inguinal lymphadenopathy Laboratory Data (last 24 hrs) 0503/05/25 03/05/25 19:05 19:05 19:05 WBC 5.10 Hgb 13.3 Hct 40.1 Plt Count 338 PT 11.7 INR 1.03 Sodium 137 Potassium 4.0 BUN 33 H Creatinine 1.94 H Glucose 103 Magnesium 2.9 H Total Bilirubin 0.4 AST 14 L ALT 17 Alkaline Phosphatase 140 H Lipase 34 - Problems (1) Palpitations Current Visit: Yes Status: Acute Plan: most likely secondary to thyroid issues. tele shows sinus bradycardia outpatient follow up with cardiology for event monitor Echo is normal (2) HTN (hypertension) Current Visit: Yes Status: Acute Plan: BP is normal continue triameterne/ HCTZ (3) Hypothyroid Current Visit: Yes Status: Acute Plan: patient TSH is very high, recommend primary team to adjust thyroid medications No further inpatient cardiac work up needed, can follow up with cardiology as outpatient
--- NOTE | 2025-03-06 16:26 | EKG ---
Test Date: 2025-03-05 Test Time: 16:55:41 Staff Physical Therapist: STEPHANIE MEASUREMENT RESULTS: Intervals: Rate: 77 [place]: 166 QRSD: 82 QT: 358 QTc: 405 [place]: P: 94 [place]: 166 QRS: -13 T: 73 INTERPRETIVE STATEMENTS: Normal sinus rhythm Nonspecific T wave abnormality Abnormal ECG Compared to ECG 02/05/2025 22:02:05 Sinus arrhythmia no longer present Possible ischemia no longer present T-wave abnormality still present Electronically Signed On 03-06-25 16:26:04 CDT by Roberto Lockhart
[2025-03-06 16:53] VITALS: BP 120/61; TEMP 97.9
--- NOTE | 2025-03-06 17:50 | P.DS ---
Admission Date: 03/05/25 Discharge Date: 03/06/25 Disposition: ROUTINE DISCHARGE Discharge Condition: FAIR Reason for Admission: CP Brief History of Present Illness: 84 yrs old Female with past medical history of hypertension, hyperlipidemia, hypothyroidism, who was brought to ER for palpitation and chest discomfort associated with lightheadedness Patient was assessed in the ER initial troponin negative, chest x-ray did not show any acute disease, TSH elevated to 22, FT4 down to 0.49. Patient was admitted for further management. Hospital Course: Diagnosis Chest pain to rule out ACS Sinus bradycardia Hypothyroid state History of hypothyroidism Essential hypertension Chronic kidney disease stage III Patient noted to have bradycardia with heart rate down to 49. Given that TSH was elevated to 22 and free T4 low at 0.49, patient diagnosed with symptomatic hypothyroid state. Patient is on methimazole 10 mg daily at home which she has been told to stop taking until she follows up with an events specialist for further management of her hypothyroid state. Patient voiced understanding and plans to follow-up with her PCP Dr. Pedro chavez for a referral to an events specialist. She will need a repeat TSH within 8 weeks. Patient was evaluated by cardiology Dr. Lockhart, who recommended to stop her carvedilol because of her bradycardia. Dr. Lockhart recommended follow-up with the cardiology office for outpatient event monitor placement. Echocardiogram was done during the hospital stay which showed normal EF and grossly unremarkable. Patient blood pressure was initially high but stabilized the rest of the hospital stay. Patient confirmed she takes multiple blood pressure medications including amlodipine, losartan, triamterene and hydrochlorothiazide and states her blood pressure has been under good control with these medications including the Coreg. Patient Coreg has been discontinued. She is informed to continue monitoring her blood pressure and may need additional blood pressure medication if her blood pressure readings becomes elevated without the Coreg. She is informed to follow-up with her PCP Dr. De Dios for further blood pressure management. Patient is informed to follow-up with Dr. Lockhart for arrangement for event monitor She is also informed to follow-up with her PCP Dr. Garrett in case she will need referral before she sees a director counseling bureau. Patient voiced understanding of these instructions. Vital Signs/Physical Exam: Temp Pulse Resp BP Pulse Ox 97.9 F 52 15 120/61 100 03/06/25 16:00 03/06/25 16:00 03/06/25 16:00 03/06/25 16:00 03/06/25 16:00 General: Alert, In no apparent distress, Oriented x3 HEENT: Mucous membr. moist/pink, Sclerae nonicteric Neck: Supple, JVD not distended Respiratory: Clear to auscultation bilaterally, Normal air movement Cardiovascular: No edema, Normal S1 S2, Other (Bradycardia) Gastrointestinal: Soft and benign, Non-distended, No tenderness Musculoskeletal: No swelling, No tenderness Integumentary: No rashes, No cyanosis Neurological: Normal strength at 5/5 x4 extr, Cranial nerves 3-12 intact Laboratory Data at Discharge: WBC 5.10 thou/uL (4.3-10.9) 03/06/25 05:02 Hgb 10.9 g/dL (12.0-15.0) L D 03/06/25 05:02 Hct 32.9 % (36.0-45.0) L 03/06/25 05:02 Plt Count 255 thou/uL (152-406) 03/06/25 05:02 PT 11.7 SECONDS (10-13.0) 03/05/25 19:05 INR 1.03 03/05/25 19:05 Sodium 138 mEq/L (136-145) 03/06/25 05:02 Potassium 4.2 mEq/L (3.5-5.1) 03/06/25 05:02 BUN 30 mg/dL (7-18) H 03/06/25 05:02 Creatinine 1.73 mg/dL (0.55-1.02) H 03/06/25 05:02 Glucose 82 mg/dL (74-106) 03/06/25 05:02 Magnesium 2.9 mg/dL (1.6-2.4) H 03/05/25 19:05 Total Bilirubin 0.4 mg/dL (0.2-1.0) 03/06/25 05:02 AST 13 U/L (15-37) L 03/06/25 05:02 ALT < 14 U/L (13-56) 03/06/25 05:02 Alkaline Phosphatase 107 U/L (45-117) D 03/06/25 05:02 Lipase 34 U/L (13-75) 03/05/25 19:05 Home Medications: Amlodipine Besylate 10 mg PO DAILY 03/06/25 Dorzolamide HCl/Timolol Maleat [Dorzolamide-Timolol Eye Drops] 1 drop OPTH BID 03/06/25 Latanoprost Ophth [Xalatan 0.005%*] 1 drop OPTH BEDTIME 03/06/25 Losartan Potassium 100 mg PO DAILY 03/06/25 Montelukast [Singulair*] 10 mg PO BEDTIME 03/06/25 Triamterene/Hydrochlorothiazid [Triamterene-Hctz 37.5-25 mg Tb] 1 each PO DAILY 03/06/25 Physician Discharge Instructions: Patient presented to the ER with palpitation and chest discomfort. Symptoms are associated with lightheadedness Patient was assessed in the ER, initial cardiac enzyme(troponin was negative), chest x-ray suggested some evidence of COPD, no acute disease. Blood work showed elevated TSH indicating a hypothyroid state. Patient was admitted for further investigations and management. Patient noted to have bradycardia with heart rate down to 49. Given that TSH was elevated to 22 and free T4 low at 0.49, patient diagnosed with symptomatic hypothyroid state. Patient is on methimazole 10 mg daily at home which she has been told to stop taking until she follows up with an events specialist for further management of her hypothyroid state. Patient voiced understanding and plans to follow-up with her PCP Dr. Pedro chavez for a referral to an events specialist. She will need a repeat TSH within 8 weeks. Patient was evaluated by cardiology Dr. Lockhart, who recommended to stop her carvedilol because of her bradycardia. Dr. Lockhart recommended follow-up with the cardiology office for outpatient event monitor placement. Echocardiogram was done during the hospital stay which showed normal EF and grossly unremarkable. Patient blood pressure was initially high but stabilized the rest of the hospital stay. Patient confirmed she takes multiple blood pressure medications including amlodipine, losartan, triamterene and hydrochlorothiazide and states her blood pressure has been under good control with these medications including the Coreg. Patient Coreg has been discontinued. She is informed to continue monitoring her blood pressure and may need additional blood pressure medication if her blood pressure readings becomes elevated without the Coreg. She is informed to follow-up with her PCP Dr. De Dios for further blood pressure management. She is also informed to follow-up with her PCP Dr. Harmon in case she will need referral before she sees a director counseling bureau. No new medications. Medication changes: Carvedilol discontinued Methimazole discontinued. Diet: AHA Activity: Fall precautions Followup: Seb De Dios MD [Primary Care Provider] - 1 Week (Call for appointment.) Roberto Lockhart MD [ACTIVE - CAN ADMIT] - 2-3 Days (Please call the office for arrangement for event monitor) Time spent managing pt's care (in minutes): 36
[2025-03-06] MEDS ORDERED: ATORVASTATIN 40 MG TAB PO SCH (21:00)
== END 2025-03-06 18:30 | disposition home or self-care (01) | DRG 645 ==
LOC: ER 16:14 → ERHOLD 20:18 → 4TH 23:34
PROVIDERS: ADMIT Family Medicine; ATTEND Internal Medicine
DX: E03.9 Hypothyroidism, unspecified (principal); E78.00 Pure hypercholesterolemia, unspecified; I12.9 Hypertensive chronic kidney disease with stage 1 through stage 4 chronic kidney disease, or unspecified chronic kidney disease; N18.30 Chronic kidney disease, stage 3 unspecified; R00.1 Bradycardia, unspecified; Z79.01 Long term (current) use of anticoagulants; Z79.899 Other long term (current) drug therapy; Z90.710 Acquired absence of both cervix and uterus
CPT/HCPCS: 36415; 71045; 80048; 80053; 80076; 83690; 83735; 83880; 84439; 84443; 84484; 85025; 85610; 93005; 93306; 94760; 96365; 96366; 96372; 99285; G0378; J1650; J3475; J7040